=== PATIENT | male | born 1990 | race Two or more races ===

== ENCOUNTER 2022-01-07 09:37 | Emergency (ER) | payer OTHER ==
[~2022-01-07] VITALS: Ht 175.3 cm; Wt 79.4 kg
[2022-01-07 10:12] VITALS: BP 118/77
--- NOTE | 2022-01-07 10:12 | NUR ---
Patient discharged to [facility] in stable condition, accompanied by [employer]. Written and verbal after care instructions given. Patient verbalizes understanding of instruction.
== END 2022-01-07 10:12 ==
LOC: ER 09:41
DX: Z02.89 Encounter for other administrative examinations (principal); F11.20 Opioid dependence, uncomplicated